=== PATIENT | male | born 1980 | race Two or more races ===

== ENCOUNTER 2024-04-29 19:55 | Emergency (ER) | payer OTHER ==
[~2024-04-29] VITALS: Ht 190.5 cm; Wt 99.8 kg
[2024-04-29] MEDS ORDERED: CEFTRIAXONE SODIUM 2,000 MG VIAL IV ONE (20:15)
[2024-04-29] MEDS ORDERED: TETANUS & DIPHTHERIA TOX,ADULT 0.5 ML VIAL IM ONE (20:15)
[2024-04-29] MEDS ORDERED: CEFTRIAXONE SODIUM 2,000 MG VIAL ONE (20:18)
[2024-04-29] MEDS ORDERED: TETANUS DIPHTHERIA TOX. ADSOR 5 ML VIAL IM ONE (20:18)
[2024-04-29] MEDS ORDERED: 0.9 % SODIUM CHLORIDE 1,000 ML IV STA (20:19)
[2024-04-29] MEDS ORDERED: LIDOCAINE HCL 1% 10ML VIAL ONE (20:19)
[2024-04-29 20:39] LABS: HEMATOCRIT 43.3 % (39.0-48.0); HEMOGLOBIN 14.6 g/dL (13-16.00); MEAN CELL VOLUME 87.5 fL (80.0-100.00); MEAN CORPUSCULAR HEMOGLOBIN 29.5 pg (27.00-32.0); MEAN CORPUSCULAR HGB CONC 33.7 g/dl (32.0-36.0); PLATELET COUNT 247 K/uL (150-450); RED BLOOD COUNT 4.95 M/uL (4.00-6.00); RED CELL DISTRIBUTION WIDTH 14.1 % (11.5-14.5)
[2024-04-29] MEDS ORDERED: MEPERIDINE HCL/PF 50 MG/ML VIAL IM ONE (21:30)
[2024-04-29] MEDS ORDERED: ONDANSETRON HCL 2 MG/ML VIAL IV STA (23:35)
[2024-04-29] MEDS ORDERED: ONDANSETRON HCL 2 MG/ML VIAL ONE ×2 (23:37→23:45)
[2024-04-30] MEDS ORDERED: KETOROLAC TROMETHAMINE 30 MG VIAL IV STA (01:10)
[2024-04-30] MEDS ORDERED: KETOROLAC TROMETHAMINE 30 MG VIAL ONE (01:13)
[2024-04-30] MEDS ORDERED: ORPHENADRINE CITRATE 30 MG/ML AMPUL ONE (04:25)
[2024-04-30] MEDS ORDERED: ORPHENADRINE CITRATE 30 MG/ML AMPUL IM ONE (04:45)
== END 2024-04-30 06:19 | disposition designated cancer center or children's hospital (05) ==
LOC: ER 19:57
PROVIDERS: Emergency Medicine
DX: S01.82XA Laceration with foreign body of other part of head, initial encounter (principal); V29.39XA Other motorcycle (driver) (passenger) injured in unspecified nontraffic accident, initial encounter; Y93.I9 Activity, other involving external motion; Y92.413 State road as the place of occurrence of the external cause; S68.011A Complete traumatic metacarpophalangeal amputation of right thumb, initial encounter